=== PATIENT | female | born 1945 | race Caucasian/White ===

== ENCOUNTER 2019-12-31 22:49 | Outpatient (REF) | payer OTHER, SELFPAY ==
[2019-12-31 21:43] LABS: Hemoglobin A1C 6.1 % (3.8-5.6)
[2019-12-31 21:52] LABS: ALT 24 U/L (14-59); AST 15 U/L (15-37); Anion Gap 10.3 mmol/L (3-11); BUN 19 mg/dL (7-18); CO2 27.7 mmol/L (21.0-32.0); CREATININE 0.85 mg/dL (0.55-1.02); Calcium 8.7 mg/dL (8.5-10.1); Calculated LDL 206 mg/dL (<100); Chloride 104 mmol/L (98-107); Cholesterol 304 mg/dL (<200); Glucose 104 mg/dL (74-106); HDL Cholesterol 45 mg/dL (40-60); Magnesium 2.1 mg/dL (1.8-2.4); Potassium 4.2 mmol/L (3.5-5.1); Sodium 142 mmol/L (136-145); Triglyceride 269 mg/dL (<150)
[2020-01-03 11:47] LABS: Hepatitis C Ab w Rflx HCV PCR Negative (Negative)
== END 2019-12-31 23:09 ==
LOC: NCHCN 22:49
PROVIDERS: PCP Nurse Practitioner; Visit Provider Nurse Practitioner Family
DX: E78.5 Hyperlipidemia, unspecified (principal); M25.50 Pain in unspecified joint; R09.89 Other specified symptoms and signs involving the circulatory and respiratory systems; Z00.00 Encounter for general adult medical examination without abnormal findings; R73.01 Impaired fasting glucose; Z11.59 Encounter for screening for other viral diseases
CPT/HCPCS: 80048; 80061; 86803; 83036; 83735; 84450; 84460

== ENCOUNTER 2020-01-11 01:59 | Outpatient (CLI) | payer OTHER, SELFPAY ==
--- NOTE | 2020-01-11 | DI.US_ITS ---
EXAM: US CAROTID CLINICAL HISTORY: CAROTID BRUIT LEFT R09.89 TECHNIQUE: Ultrasound performed using standard protocol. COMPARISON: AXILLA ONLY RIGHT from 05/05/2017 FINDINGS: Duplex evaluation of the carotid circulation was performed according to the usual protocol. There is little if any visible atheromatous plaque. Flow velocities in common, internal, and external caroti d arteries are within normal limits bilaterally. There is bilateral antegrade vertebral flow. IMPRESSION: No evidence of a hemodynamically significant carotid stenosis. DATA REPOSITORY:
== END 2020-01-11 02:19 ==
PROVIDERS: PCP Nurse Practitioner Family; Visit Provider Nurse Practitioner Family
DX: R09.89 Other specified symptoms and signs involving the circulatory and respiratory systems (principal)
CPT/HCPCS: 93880

== ENCOUNTER 2020-04-12 01:12 | Outpatient (CLI) | payer OTHER, SELFPAY ==
--- NOTE | 2020-04-12 | DI.RAD_ITS ---
EXAM: XR KNEE LT 3V AP,LAT,JOSE ALBERTO INDICATION: DEGENERATIVE JOINT DISEASE, M19.90, KNEE PAIN. COMPARISON: No exams were available for comparison TECHNIQUE: 2D digital imaging was performed. FINDINGS: There is severe narrowing of the medial femoral tibial joint causing varus angulation. There is pro minent spurring from the medial femoral condyle and medial tibial plateau. Lateral femoral tibial yamini int is well maintained. There is inxx-mu-dcobqkco spurring laterally. A small joint effusion is see n. There is spurring at the patellofemoral joint. IMPRESSION: Severe degenerative changes of the medial femoral tibial joint. DATA REPOSITORY: RADIATION DOSE DELIVERED:
== END 2020-04-12 01:32 ==
PROVIDERS: PCP Nurse Practitioner Family; Visit Provider Internal Medicine
DX: M25.562 Pain in left knee (principal); M25.462 Effusion, left knee; M17.12 Unilateral primary osteoarthritis, left knee
CPT/HCPCS: 73562

== ENCOUNTER 2020-05-26 03:07 | Outpatient (CLI) | payer OTHER, SELFPAY ==
[2020-05-26 10:44] LABS: Abs Immature Grans 0.01 k/cumm (0.0-0.09); Absolute Basophil Count 0.03 k/cumm (0.0-0.2); Absolute Lymphocyte Count 1.86 k/cumm (1.2-3.4); Absolute Monocyte Count 0.51 k/cumm (0.11-0.7); Absolute Neutrophil Count 2.32 k/cumm (1.2-6.7); Basophils % 0.6; Eosinophils % 2.1; HCT 42.6 % (36.0-46.0); HGB 14.4 g/dL (12.0-15.5); Immature Grans % 0.2 %; Lymphocytes % 38.5; Mean Corp. HGB Concentration 33.8 g/dL (32.0-36.0); Mean Corpuscular Hemoglobin 30.3 pg (27.0-33.0); Mean Corpuscular Volume 89.5 fL (80-95); Mean Platelet Volume 8.8 fL (8.0-11.0); Monocytes % 10.6; Platelet Count 225 x1000/uL (130-400); RBC 4.76 m/cumm (4.00-5.20); RBC Distribution Width 13.6 % (11.7-14.6); White Blood Cell Count 4.83 k/cumm (4.4-10.8)
[2020-05-26 20:11] LABS: COVID-19 RT-PCR UVMMC Result Negative (Negative)
== END 2020-05-26 03:27 ==
PROVIDERS: PCP Nurse Practitioner Family; Visit Provider Orthopaedic Surgery
DX: M25.562 Pain in left knee (principal); M17.12 Unilateral primary osteoarthritis, left knee; Z01.818 Encounter for other preprocedural examination; Z11.59 Encounter for screening for other viral diseases
CPT/HCPCS: 36415; U0003; 85025

== ENCOUNTER 2020-05-29 06:05 | Inpatient (IN) | payer OTHER, SELFPAY ==
[2020-05-29] VITALS (13 sets, daily range): BP systolic 104–139; BP diastolic 45–82; PULSE 67–81; RESP 11–18; TEMP 36.2–36.7; O2SAT 93–100
--- NOTE | 2020-05-29 | DI.RAD_ITS ---
EXAM: XR KNEE LT 2V AP,LAT CLINICAL HISTORY: check total knee components in RR. TECHNIQUE: 2D digital imaging was performed. COMPARISON: CR XR KNEE LT 3V AP,LAT,JOSE ALBERTO from 04/12/2020 FINDINGS: The patient is now status post left total knee replacement. Orthopedic hardware appears in good posi tion. Post surgical changes are seen in the soft tissues. IMPRESSION: Status post left total knee arthroplasty. DATA REPOSITORY: RADIATION DOSE DELIVERED:
[2020-05-29] MEDS: Lactated Ringers 1,000 ML 80 ML IV (06:46)
[2020-05-29] MEDS: Bupivacaine 0.25% Pres-Free 30 ML VIAL (07:16)
[2020-05-29] MEDS: ceFAZolin 2 GM/50 ML BAG IVPB ×5 (07:29→23:15)
[2020-05-29] MEDS: Hydrogen Peroxide 3% 480 ML BTL (09:00)
[2020-05-29] MEDS: POTASSIUM CHLORIDE/0.9% NACL 1,000 ML 125 MEQ IV (11:30)
[2020-05-29] MEDS: Acetaminophen 325 MG TAB 650 MG PO (13:08)
[2020-05-29] MEDS: Docusate Sodium 100 MG CAP PO ×2 (13:08→19:24)
[2020-05-29] MEDS: Gabapentin 100 MG CAP PO ×2 (13:08→19:24)
[2020-05-29] MEDS: oxyCODONE-CR 10 MG TABCR PO (15:01)
--- NOTE | 2020-05-29 15:03 | ROE_ITS ---
Date of service: 05/29/20 Time of Service: 08:03 Operative Note Operative Note DATE OF PROCEDURE: 05/29/20 PRE-OP DIAGNOSIS: Osteoarthritis left knee with varus deformity POST-OP DIAGNOSIS: same PROCEDURE: Left total knee arthroplasty SURGEON: Juan Diego Cowart HEALTH SPA MANAGER: Divina Araujo ANESTHESIA: spinal PATHOLOGY: none sent TOURNIQUET TIME: 100 COMPLICATIONS: None Patient was transported to: PACU Patient's condition: stable Implants: Left size 3 posterior cruciate substituting femoral component. Size 3 tibial component. Size 312.5 posterior cruciate substituting polyethylene insert. 32 mm tri-prong patella. All components were cemented Indications: Is a 75-year-old white female with severe left knee pain of many years duration. She has basically put off getting a knee replacement while caring for her who has Alzheimer's disease. She however has reached the point where she can no longer tolerate the pain on a day-to-day basis. Every step she takes says she feels the crepitus in her knee. She has very great difficulty going up and down stairs because of the pain. She goes up 1 step at a time. She is awakened at night by the pain. She enjoys dancing but is been unable to dance because of the pain in her knee. Total knee replacement is recommended to alleviate her pain and hopefully restore some of her previous ambulatory abilities. Risk and complication of procedure been explained patient in detail preop. Procedure Description: Patient taken the operating room on 05/29/2020. Long- acting spinal anesthetic was administered as well as a femoral nerve block on the left side. Once good anesthesia was obtained she was placed about operative table. Proximal tourniquet was applied to the left thigh. The left lower extremity was prepped from toes to tourniquet and draped free in usual sterile fashion. Entry midline incision was made beginning at the tibial tubercle and extending 4 inches proximal to the patella. Incision was carried down to the fascia. A medial parapatellar capsular incision was made and this was extended longitudinally in the midline of the quadriceps tendon. Complete medial subperiosteal release was performed to compensate for her varus deformity. Patella was everted and the knee was hyperflexed. Patient evidenced severe tricompartmental wear from osteoarthritis of her knee. The distal femur was resected using intramedullary alignment guides and jigs and oscillating saw. Sh e was found to require a size 3 posterior cruciate substituting femoral component. The proximal tibia was resected using extra medullary arm and guides and jigs. Cuts were referenced from the more severely involved medial compartment. She was found to require a size 3 tibial component. Proper rotation alignment was determined and tibial component and then the keel for the component was reamed and punched out in proper rotation alignment. The patella was resected using patellar resection guide. Care was taken to preserve 16 mm of patella bone. Using the guide for the triplane patella holes were reamed out for the prongs with the reamer. She required a 32 mm patella component. 1 batch of gentamicin impregnated methylmethacrylate was vacuum mixed and was packed onto the posterior surfaces of the tibial component and onto the prepared proximal tibia. The tibia was prepared with pulse irrigation of of saline solution and drying with peroxide soaked strip sponges. The tibial component was inserted and was pressurized extending the knee with the trial components in place. Excess cement was trimmed from the margins of the tibial component with the plastic cement removal tool while cement was still soft. When the met methylmethacrylate had cured the trial components were removed. The distal femur and patella were prepared for cementing with pulse irrigation lavage of saline solution and drying with peroxide soaked strip sponges. A second batch of gentamicin impregnated methylmethacrylate was vacuum mixed and was packed onto the posterior surfaces of the femoral component and patella components. The methylmethacrylate is then packed onto the distal femur and prepared patella. Femoral component was impacted in place with impactor mallet and further pressurized using a trial insert and extending the knee. Patella component was inserted and pressurized using the patella clamp. Excess cement was trimmed from the margins of the femoral component patella component while the cement was still soft with a plastic cement removal tool. At this second batch of methylmethacrylate was cured the posterior recesses were checked for any residual bone or cement debris. Any found was removed. The knee was irrigated final time with pulse irrigation lavage of saline solution. Trial determined that a 12.5 thick insert was the proper size. The size 312.5 posterior cruciate substituting polyethylene insert was then placed into the tibia and reduced on the femoral condyles. Patella tracking was anatomic using the rule of no thumb. Knee was flexible esophagus and closure was begun. Wound margins in the knee capsule were infiltrated 0.5% Gildardo cane with epinephrine solution. Any obvious bleeders were cauterized. The medial parapatellar capsular incision was closed with interrupted vknmps-ae-mppyl sutures of #1 Vicryl suture. Incision the quadriceps tendon was repaired with interrupted srhbub-gs-bmzbo sutures of #1 Vicryl suture. Subcu was approximated interrupted 2-0 Vicryl sutures. A running subcuticular suture of 3-0 Monocryl was used to approximate skin edges this was supplemented by tissue glue and Steri-Strips. Mepilex dressing was applied. ABD pads wrapped with a 6 inch Chris bandages were placed over the incision tourniquet was released. Knee immobilizer splint was applied. Patient tolerated the procedure well without complication. She received 1 g of TXA prior to tourniquet inflation and a second gram of TXA when the tourniquet was deflated. Patient was discharged to the recovery room in good condition. At the conclusion of the procedure the patient had full extension of the left knee. The left knee was stable to varus valgus stressing from 0 to 90 degrees of flexion.
--- NOTE | 2020-05-29 15:11 | PT.INIE ---
Date of service: 05/29/20 Time of Service: 15:11 PT Notes Visit Reasons: POST OP L TOTAL KNEE Physical Therapy Inpatient Initial Evaluation Date: 05/29/2020 Referring Doctor: Juan Diego Cowart MD PT Orders: PT CONSULT: Status post Ortho surgery. Get OOB ambulating in room this afternoon. WBAT to L leg. Precautions: Fall. Standard. Activity as tolerated. Patient Profile/Admitting Diagnosis: Christen is a 75-year-old female with primary unilateral osteoarthritis of the left knee and is status post left total knee arthroplasty on postoperative day 0. PMHX: Medical History (Updated 05/24/20 @ 15:39 by Bryant Leary) Hyperlipidemia (Acute) Surgical History (Updated 05/24/20 @ 15:41 by Bryant Leary) H/O bilateral cataract extraction (Acute) Hx of wisdom tooth extraction (Acute) Social History/Home Situation: Christen lives in a [id number]-[id number] room with her son and her son's family. There are 4 steps to enter with rails on both sides. Christen was independent with all aspects of ADLs prior to surgery although she states that she has not driven her car for a long time due to cataracts. Equipment Owned/DME: None Subjective: Christen reports that she is able to feel her left leg and complains of 4/10 pain in the left knee at rest and with ambulation activity. She denies dizziness, chest pain, headache throughout session. Objective: General Observation: Knee immobilizer on the left LE. Cryo/Cuff on the left LE. IV in the right UE. TEDS on the right leg. Mae catheter in place. Mental Status: Oriented x4 Pain: Reports 4/10 pain in the left knee ROM: Right Upper Extremity: Shoulder Flexion WFL. Shoulder abduction WFL. Elbow flexion WFL. Wrist flexion WFL. Opening and closing of hand WFL. Left Upper Extremity: Shoulder Flexion WFL. Shoulder abduction WFL. Elbow flexion WFL. Wrist flexion WFL. Opening and closing of hand WFL. Right Lower Extremity: Hip flexion WFL. Hip abduction WFL. Knee flexion WFL. Ankle dorsiflexion WFL. Ankle plantarflexion WFL. Left Lower Extremity: Hip flexion WFL. Hip abduction WFL. Knee flexion NT. Ankle dorsiflexion WFL. Ankle plantarflexion WFL. Strength: Right Upper Extremity: Shoulder flexors 5/5. Shoulder abductors 5/5. Elbow flexors 5/5. Elbow extensors 5/5. Nurse Anesthesia Program Director strong. Left Upper Extremity: Shoulder flexors 5/5. Shoulder abductors 5/5. Elbow flexors 5/5. Elbow extensors 5/5. Nurse Anesthesia Program Director strong. Right Lower Extremity: Hip flexors 5/5. Hip abductors 5/5. Knee flexors 5/5. Knee extensors 5/5. Ankle dorsiflexors 5/5. Ankle plantarflexors 5/5. Left Lower Extremity:Hip flexors 4/5. Hip abductors 4/5. Knee flexors NT. Knee extensors NT. Ankle dorsiflexors 4/5. Ankle plantarflexors 4/5. Sensation: Intact as to pain and pressure on bilateral lower extremities. Bed Mobility/Transfers: Supine to sit standby assist with HOB at 30 degrees Sit to stand contact-guard assist with minimal verbal cueing for hand placement, requires use of front wheeled walker Stand to sit contact-guard assist with minimal verbal cueing for hand placement, requires use of front wheeled walker Bed to chair contact-guard assist with minimal verbal cueing for hand placement, requires use of front wheeled walker Chair to bed contact-guard assist with minimal verbal cueing for hand placement, requires use of front wheeled walker Gait: Tolerated in room ambulation of 30 feet using front wheeled walker with WBAT on left LE with wheelchair follow by nurse Weldon. Knee immobilizer on the left. Reported a pulling sensation in the back of the left knee. Balance: Static Sitting: Normal Dynamic Sitting: Normal Static Standing: Fair Dynamic Standing: Fair Special Tests: Mobility Limitations Standardized Measure [facility]-P[facility] 6 clicks Basic Mobility Inpatient Short Form: Raw Score: 18 CMS Score: 47% deficit Informed Consent/Education: Patient instructed in purpose of PT consult and plan of care. Assessment: Christen demonstrates functional mobility decline requiring use of front-wheeled walker for all mobility ADL performance, impairment in balance, range of motion and strength deficit, and walking due to postoperative status. Christen is a 75-year-old female with primary unilateral osteoarthritis of the left knee and is status post left total knee arthroplasty on postoperative day 0. Patient presents with clinical signs and symptoms consistent with current/admitting diagnoses that have resulted to mobility limitations, gait instability, generalized weakness, and impairment of motor control as demonstrated by the following impairment level findings: 1. Decreased strength to left LE major muscle groups 2. Impaired sitting/standing balance 3. Impaired activity tolerance 4. Limitation of joint range of motion in left knee Impairments are contributing to the following functional limitations: 1. Increased dependence with transfers 2. Inability to safely ambulate without assistive device and physical assistance 3. Increase completion time for mobility ADL performance 4. Increased fall risk 5. Inability to negotiate steps alone safely Patient is assessed as a 93667 moderate complexity based on the following: History: 75-year-old female with impairment level findings, functional limitations, and past medical history as indicated above Examination: Demonstrable impairment in strength, balance, and mobility level with underlying impairments and functional limitations as documented above Presentation:Evolving Decision Makin moderate complexity Goals: Goals X 3 days 1. Supine-Sit independent 2. Sit-Supine independent 3. Sit-Stand supervision 4. Stand-Sit supervision 5. Bed-Chair supervision 6. Chair-Bed supervision 7. Supervision gait on level surface with use of front wheeled walker for at least 300 feet without report of pain nor dyspnea 8. Supervision stair negotiation while holding onto bilateral rails for at least 5 steps without report of pain nor dyspnea 9. Independent with home exercise program 10. Good static and dynamic standing balance/tolerance Plan of Care/Treatment Plan: 1-2x/day, 7 days/week x 1 week. Plan of care has been reviewed with the PARK RECREATION MANAGER providing the service under Physical Therapy direction. Initiate Physical Therapy intervention for strengthening, bed mobility, transfers, gait, stairs, balance training, use of assistive device. PT intervention: Consisted of initial physical therapy evaluation as well as with education and training on mobility ADL performance using front wheeled walker. Patient also was educated and trained on standing level exercises consisting of weight shifting left to right x10, forward and backward shifting x10, and bilateral heel raises while holding onto front wheeled walker. Patient was also trained on room exercises that she can do on her own every 2 hours while in bed or seated on her chair consisting of gluteal setting exercises x10 held for 5 seconds each, bilateral quadriceps exercises x10 held for 5 seconds each, and bilateral ankle pumping x 20. DISCHARGE RECOMMENDATIONS: Outpatient physical therapy services according to orthopedic surgeon's timeline recommendation. Patient will benefit from the use of a front wheeled walker prior to discharge to home. TREATMENT CODE/TIME: 31605 x 30 minutes, 9753 0 x 14 minutes beginning at 15:11 PM. Thank you for the opportunity to participate in the care of this patient. Priscilla Sanchez PT, DPT, CLT [facility] [place], [place]
--- NOTE | 2020-05-29 15:21 | INITIAL_ITS ---
- If Service Date Differs Date of service: 05/29/20 Time of Service: 11:00 Care Management Initial Assess REASON FOR HOSPITALIZATION:: Post Op L Total Knee PAST MEDICAL HISTORY/PAST SURGICAL HISTORY:: Hyperlipidemia, bilateral cataract extraction, left arthroscopic knee surgery, tubal ligation, wisdom tooth extraction PREVIOUS FUNCTIONAL STATUS/SOCIAL/FAMILY SUPPORTS:: Christen resides alone in [place], [place]. She is and her daughter and son-in-law reside with her. ADVANCE DIRECTIVES:: None on file. Reports Abby Jaimes as POA. Has patient been provided with info about the portal/API?: Yes Did the patient sign up for the portal?: No CODE STATUS:: Full Code CURRENT HOME/COMMUNITY SERVICES/EQUIPMENT:: Tub seat, hand held shower, handrails PRIMARY CARE PHYSICIAN:: Natalie Davis. POTENTIAL DISCHARGE NEEDS:: PT evaluation, DME recommendations. PATIENT/FAMILY EDUCATION NEEDS:: Review of discharge instructions, discuss Ask Me Three. ANTICIPATED BARRIERS TO DISCHARGE:: None anticipated at this time. TRANSPORTATION:: Via private vehicle with family. PLAN:: Christen will be evaluated post surgically for discharge planning considerations. FWW provided by CM. PT to inform of additional services. CM continues to follow.
[2020-05-29] MEDS: Ketorolac 30 MG/ML VIAL IVP ×2 (16:36→21:52)
[2020-05-29] MEDS: Simvastatin 20 MG TAB 40 MG PO (19:24)
[2020-05-29] MEDS: Normal Saline Flush 10 ML SYR IV (21:53)
[2020-05-29] MEDS: POTASSIUM CHLORIDE/0.9% NACL 1,000 ML 60 MEQ IV (23:15)
[2020-05-30] MEDS: oxyCODONE-CR 10 MG TABCR PO ×2 (03:01→13:48)
[2020-05-30 03:08] VITALS: BP 98/65; PULSE 68; RESP 18; TEMP 36.9; O2SAT 95
[2020-05-30] MEDS: Ketorolac 30 MG/ML VIAL IVP ×2 (04:41→09:21)
[2020-05-30] MEDS: ceFAZolin 2 GM/50 ML BAG IVPB ×2 (06:04→12:02)
[2020-05-30 07:00] LABS: HCT 33.8 % (36.0-46.0); Mean Corp. HGB Concentration 32.5 g/dL (32.0-36.0); Mean Corpuscular Hemoglobin 29.9 pg (27.0-33.0); Mean Corpuscular Volume 91.8 fL (80-95); Mean Platelet Volume 9.2 fL (8.0-11.0); Platelet Count 184 x1000/uL (130-400); RBC 3.68 m/cumm (4.00-5.20); White Blood Cell Count 8.75 k/cumm (4.4-10.8)
[2020-05-30 07:30] VITALS: BP 101/65; PULSE 74; RESP 16; TEMP 36.7; O2SAT 94
[2020-05-30] MEDS: Gabapentin 100 MG CAP PO ×2 (08:12→13:49)
[2020-05-30] MEDS: Multivitamin w/Minerals TAB 1 TAB PO (08:12)
[2020-05-30] MEDS: Pantoprazole 40 MG TABCR PO (08:12)
[2020-05-30] MEDS: Calcium Carbonate 1.5 GM TAB PO (08:12)
[2020-05-30] MEDS: Docusate Sodium 100 MG CAP PO ×2 (08:12→13:49)
[2020-05-30] MEDS: Cyanocobalamin 500 MCG TAB 1000 MCG PO (08:13)
[2020-05-30] MEDS: HYDROcodone 5/Acetaminophen 325 TAB PO (09:21)
[2020-05-30] MEDS: Enoxaparin 40 MG/0.4 ML SYR SC (09:23)
[2020-05-30] MEDS: Magnesium Chloride 64 MG TABCR PO (09:23)
[2020-05-30] MEDS: POTASSIUM CHLORIDE/0.9% NACL 1,000 ML 125 MEQ IV (09:51)
[2020-05-30 11:00] VITALS: BP 95/59; PULSE 66; RESP 18; TEMP 36.7; O2SAT 98
--- NOTE | 2020-05-30 11:45 | PT.INTREAT ---
Date of service: 05/30/20 Time of Service: 11:45 PT Notes Visit Reasons: POST OP L TOTAL KNEE Inpatient Physical Therapy Treatment Note [facility] Date: 05/30/2020 PRECAUTIONS: Fall, WBAT L SUBJECTIVE: Christen reports that she is feeling good this morning, and that she already took a walk before breakfast with nursing. She expresses that she would like to be discharged to home today, and has a good support system there. OBJECTIVE: PAIN: Patient complains of L knee soreness with there ex and gait training BED MOBILITY/TRANSFERS Supine-sit: I with HOB flat Sit-supine: I with HOB flat Sit-stand: S in a.m.; I in p.m. Stand-sit: S in a.m.; I in p.m. Bed-Chair: S Chair-bed: S GAIT Assistive Device: FWW Weight bearing: WBAT L Assist: SBA Distance: 100' x2 in a.m.; 200' in p.m. Deviation: Step-through instruction in a.m.; use of step through gait pattern, standing rest x1 due to L LE pain THEREX: Patient completed a LE strengthening and stabilization program, as per flow sheet. Patient is able to perform active SLR x10 with ~5 degree lag. She ends with cryocuff to L knee. STAIRS: Up/down 3x4 and 2x6 using B rails and a step-to pattern with supervision ASSESSMENT: Patient tolerated sessions well with some c/o L knee soreness with gait training and ther ex. She was able to tolerate a progression in gait distance with FWW support and SBA, utilizing a step-through gait pattern with continuous FWW advancement, following instruction. She would benefit from continued gait training for improved activity tolerance, as well as continued ther ex for improved strength and mobility. PLAN: Continue with PT's POC TREATMENT CODE/TIME: Session 1: 35 minutes; 11482, [id number] Session 2: 25 minutes; 08751, [id number]
--- NOTE | 2020-05-30 12:47 | W.PM.DS.N ---
Date of service: 05/30/20 Time of Service: 12:47 DS: Diagnosis Discharge Diagnosis (1) Osteoarthritis of left knee: Status: Acute Discharge Plan Disposition Patient Disposition: HOME Condition: Good Discharge Details Reason For Visit: POST OP L TOTAL KNEE Admit Date/Time: 05/29/20 06:05 Admit Provider: Juan Diego Cowart Attending Provider: Juan Diego Cowart Primary Care Provider: Natalie Davis Hospital Course Hospital Course: The patient was taken to the operating room on 05/29/20 where she underwent a L total knee arthroplasty without complication. She was mobilized with physical therapy in the afternoon. On 05/30/20 she was independant with transfers and ambulation. She was eating and drinking well. She was able to do an active straight leg raise without the knee immobilizer. She voided post quintanilla removal. She was afebrile with stable vital signs. She was taking PO pain meds. I felt she had completed the acute care phase of her hospitalization and was ready for home discharge. Home Meds and New Rx's Prescriptions: New gabapentin 100 mg capsule 100 mg PO TID Qty: 30 RF: 0 celecoxib 200 mg capsule 200 mg PO BID Qty: 30 RF: 0 hydrocodone-acetaminophen 5-325 mg tablet 1 tab PO Q4H PRN (Reason: pain) Qty: 20 RF: 0 Continued acetaminophen [Acetaminophen Extra Strength] 500 mg Tablet 1,000 mg PO BID PRNRF: 0 Slow-Mag 71.5 mg Tablet,Delayed Release (Dr/Ec) 71.5 mg PO DAILY RF: 0 echinacea 400 MG capsule 400 mg PO DIRECTED RF: 0 cyanocobalamin (vitamin B-12) [Vitamin B-12] 1,000 MCG tablet 1,000 mcg PO DAILY RF: 0 acetaminophen [Arthritis Pain Relief (acetam)] 650 MG tablet extended release 650 mg PO BID RF: 0 calcium carbonate 600 MG tablet 1 tab PO DAILY RF: 0 simvastatin 20 MG tablet 40 mg PO QPM RF: 0 vitamin B complex [B-Complex] 1 EACH tablet 1 ea PO DAILY RF: 0 melatonin 10 MG tablet 10 mg PO HS RF: 0 Discharge Instructions Additional Instructions: Elevate L leg when sitting. Wear elastic stockings during daytime only, for next 2 weeks. Apply cryocuff to L knee 4 times/day for 1 hour each time. You don't have to use knee immobilizer splint at home. Outpatient physical therapy at [facility] later this week for L total knee rehab. Remove outer dressing to shower on . Leave dressing stuck to skin in place. You can shower and get this wet. Let it come off by itself, or we will remove it when you follow up. Follow up with in 2 weeks. Walk every day as much as your discomfort allows. Use walker or cane as long as you limp. Take one baby aspirin (81 mg) twice/day for 30 days to prevent bloodclots in your legs. Take celebrex as prescribed to decrease inflammation and swelling. Take hydrocodone for breakthru pain, if needed. The gabapentin is to prevent nerve pain in L leg. Referrals: Juan Diego Cowart MD [ [facility] STAFF PHYSICIAN] - (f/u in 2 weeks.) Activity:: Activity as Tolerated Equipment/Supplies:: Walker Diet:: As Tolerated Discharge Orders Discharge Orders: Discharge Order (Routine); Ordered 05/30/20 Ordered By: Juan Diego Cowart DS: Summary Status at Discharge Functional status at discharge: uses cane/walker Overall status at discharge: patient is not back to baseline Mental Status: mental status grossly normal Speech and Movement: speech and movement normal Mood: congruent mood Affect: normal affect Exam Psych Mental Status: mental status grossly normal Speech and Movement: speech and movement normal Mood: congruent mood Affect: normal affect DS: Data Vitals/I&O Vitals and I&O: Vital Signs Temperature 36.7 C 05/30/20 11:00 Temperature Source Tympanic 05/30/20 11:00 Pulse 66 05/30/20 11:00 Pulse Rhythm Regular 05/30/20 07:20 Respiratory Rate 18 05/30/20 11:00 Respiratory Effort Non-Labored 05/30/20 07:20 Respiratory Depth Normal 05/30/20 07:20 Respiratory Pattern Normal 05/30/20 07:20 Blood Pressure 95/59 L 05/30/20 11:00 Pulse Oximetry 98 05/30/20 11:00 Respiratory End-tidal CO2 31 05/29/20 11:10 Oxygen Delivery Method Room Air 05/30/20 11:00 Oxygen Flow Rate 0 05/30/20 11:00 Pain Level 6 05/30/20 11:22 Intake & Output 05/29/20 05/30/2005/30/20 23:59 11:59 23:59 Intake Total 1368 / 2398 1490 / 1490 Output Total 1050 / 1450 1150 / 1150 Balance 318 / 948 340 / 340 Intake: IV 1128 / 2158 1050 / 1050 Oral 240 / 240 440 / 440 Output: Urine 1050 / 1450 1150 / 1150 Other: Urine Color Yellow Yellow Urine Appearance Clear Clear Data Completed and Pending Labs on day of discharge: Labs from last 24 hours 05/30/20 05:55 WBC 8.75 RBC 3.68 L Hgb 11.0 L Hct 33.8 L MCV 91.8 MCH 29.9 MCHC 32.5 RDW 14.0 Plt Count 184 MPV 9.2 PFSH Medical History Hyperlipidemia (Acute) Surgical History (Updated 05/29/20 @ 06:29 by Brittney Messina RN) H/O bilateral cataract extraction (Acute) Hx of arthroscopic knee surgery (Chronic) Left Hx of tubal ligation (Chronic) Hx of wisdom tooth extraction (Acute) Family History (Updated 05/25/20 @ 12:15 by Ricci Skinner) Father Heart disease Mother Cancer Diabetes Social History Smoking/Tobacco Use Status: Never Drug use: Never
--- NOTE | 2020-05-31 17:00 | INDS_ITS ---
Date of service: 05/31/20 PT Notes Visit Reasons: POST OP L TOTAL KNEE Physical Therapy Inpatient Discharge Summary Date: 05/31/2020 Dates of Service: 05/29/2020 through 05/30/2020 This is a clinical summary of care provided on the duration of dates listed above. No charge was made in the completion of this documentation. Referring Doctor: Juan Diego Cowart MD PT Orders: PT CONSULT: Status post Ortho surgery. Get OOB ambulating in room this afternoon. WBAT to L leg. Precautions: Fall. Standard. Activity as tolerated. Patient Profile/Admitting Diagnosis: Christen is a 75-year-old female with primary unilateral osteoarthritis of the left knee and is status post left total knee arthroplasty on postoperative day 2. PMHX: Medical History (Updated 05/24/20 @ 15:39 by Bryant Leary) Hyperlipidemia (Acute) Surgical History (Updated 05/24/20 @ 15:41 by Bryant Leary) H/O bilateral cataract extraction (Acute) Hx of wisdom tooth extraction (Acute) Social History/Home Situation: Christen lives in a [id number] room with her son and her son's family. There are 4 steps to enter with rails on both sides. Christen was independent with all aspects of ADLs prior to surgery although she states that she has not driven her car for a long time due to cataracts. Equipment Owned/DME: None Subjective: NT Objective: General Observation: NT Mental Status: NT Pain: NT ROM: Right Upper Extremity: Shoulder Flexion WFL. Shoulder abduction WFL. Elbow flexion WFL. Wrist flexion WFL. Opening and closing of hand WFL. Left Upper Extremity: Shoulder Flexion WFL. Shoulder abduction WFL. Elbow flexion WFL. Wrist flexion WFL. Opening and closing of hand WFL. Right Lower Extremity: Hip flexion WFL. Hip abduction WFL. Knee flexion WFL. Ankle dorsiflexion WFL. Ankle plantarflexion WFL. Left Lower Extremity: Hip flexion WFL. Hip abduction WFL. Knee flexion NT. Ankle dorsiflexion WFL. Ankle plantarflexion WFL. Strength: Right Upper Extremity: Shoulder flexors 5/5. Shoulder abductors 5/5. Elbow flexors 5/5. Elbow extensors 5/5. Educational Program Director strong. Left Upper Extremity: Shoulder flexors 5/5. Shoulder abductors 5/5. Elbow flexors 5/5. Elbow extensors 5/5. Educational Program Director strong. Right Lower Extremity: Hip flexors 5/5. Hip abductors 5/5. Knee flexors 5/5. Knee extensors 5/5. Ankle dorsiflexors 5/5. Ankle plantarflexors 5/5. Left Lower Extremity:Hip flexors 4/5. Hip abductors 4/5. Knee flexors NT. Knee extensors NT. Ankle dorsiflexors 4/5. Ankle plantarflexors 4/5. Sensation: Intact as to pain and pressure on bilateral lower extremities. Bed Mobility/Transfers: Supine to sit I Sit to stand I with FWW Stand to sit I with FWW Bed to chair I with FWW Chair to bed I with FWW Gait: Tolerated in room ambulation of 200 feet using front wheeled walker with WBAT on left LE with wheelchair follow by nurse Fatemeh. Knee immobilizer on the left. Step through gait pattern. Standing rest needed due to knee pain complaint. Balance: Static Sitting: Normal Dynamic Sitting: Normal Static Standing: Fair Dynamic Standing: Fair Assessment: Christen demonstrates functional mobility decline requiring use of front-wheeled walker for all mobility ADL performance, impairment in balance, range of motion and strength deficit, and walking due to postoperative status. Christen is a 75-year-old female with primary unilateral osteoarthritis of the left knee and is status post left total knee arthroplasty on postoperative day 2. Patient continue to present with clinical signs and symptoms consistent with current/admitting diagnoses that have resulted to mobility limitations, gait instability, generalized weakness, and impairment of motor control as demonstrated by the following impairment level findings: 1. Decreased strength to left LE major muscle groups 2. Impaired standing balance 3. Impaired activity tolerance 4. Limitation of joint range of motion in left knee Impairments are contributing to the following functional limitations: 1. Inability to safely ambulate without assistive device and physical assistance 2. Increase completion time for mobility ADL performance 3. Increased fall risk 4. Inability to negotiate steps alone safely Goals: Goals X 3 days 1. Supine-Sit independent MET 2. Sit-Supine independent MET 3. Sit-Stand supervision MET 4. Stand-Sit supervision MET 5. Bed-Chair supervision MET 6. Chair-Bed supervision MET 7. Supervision gait on level surface with use of front wheeled walker for at least 300 feet without report of pain nor dyspnea NOT MET 8. Supervision stair negotiation while holding onto bilateral rails for at least 5 steps without report of pain nor dyspnea NOT MET 9. Independent with home exercise program MET 10. Good static and dynamic standing balance/tolerance NOT MET DISCHARGE RECOMMENDATIONS: Outpatient physical therapy services according to orthopedic surgeon's timeline recommendation. Patient will benefit from the use of a front wheeled walker prior to discharge to home. TREATMENT CODE/TIME: OH Thank you for the opportunity to participate in the care of this patient. Priscilla Sanchez PT, DPT, CLT [facility] [place], [place]
== END 2020-05-30 14:52 | disposition home or self-care (01) | DRG 470 ==
LOC: PDS 06:05 → MS 10:58
PROVIDERS: Admitting Provider Orthopaedic Surgery; PCP Nurse Practitioner Family; Visit Provider Orthopaedic Surgery
PROC: 0SRD0J9 Replacement of Left Knee Joint with Synthetic Substitute, Cemented, Open Approach (ICD-10-PCS; CPT 27447; principal; 2020-05-29 07:30)
DX: M17.12 Unilateral primary osteoarthritis, left knee (principal); M25.562 Pain in left knee; M21.162 Varus deformity, not elsewhere classified, left knee; Z96.652 Presence of left artificial knee joint; G89.18 Other acute postprocedural pain; E78.00 Pure hypercholesterolemia, unspecified; F41.9 Anxiety disorder, unspecified
CPT/HCPCS: 27447; 36415; 76942; 85027; 97110; 97162; 97530; J1650; NC; 73560; J0690; J1100; J1885; J2405; L1830

== ENCOUNTER 2021-01-31 11:45 | Outpatient (REF) | payer OTHER, SELFPAY ==
[2021-01-31 14:20] LABS: ALT 26 U/L (14-59); AST 15 U/L (15-37); Calculated LDL 127 mg/dL (<100); Cholesterol 231 mg/dL (<200); HDL Cholesterol 47 mg/dL (40-60); Triglyceride 286 mg/dL (<150)
== END 2021-01-31 11:46 | disposition home or self-care (01) ==
LOC: NCHCN 11:45
PROVIDERS: PCP Nurse Practitioner Family; Visit Provider Nurse Practitioner Family
DX: E78.00 Pure hypercholesterolemia, unspecified (principal)
CPT/HCPCS: 80061; 84450; 84460; 86003

== ENCOUNTER 2021-04-26 01:25 | Outpatient (CLI) | payer OTHER, SELFPAY ==
--- NOTE | 2021-04-26 | DI.DEXA_ITS ---
Exam(s) XR DEXA BONE DENSITY W/WO JESSICA EXAM: XR DEXA BONE DENSITY W/WO JESSICA CLINICAL HISTORY: OSTEOPENIA,M85.80 TECHNIQUE: [employer] C densitometer COMPARISON: DX DEXA BONE DENSITY WITH JESSICA from 12/28/2013 DX DEXA BONE DENSITY WITH JESSICA from 12/28/2013 FINDINGS: Lateral view of the thoracic and lumbar spine shows no evidence of compression fractures. Bone mineral density measurements of the lumbar spine correspond to a total T-score of negative 1.4, in the osteopenic range. This is not significantly changed from the previous exam. There are degen erative changes at L1 and L2 with visibly increased sclerosis,. The L3 vertebral body shows a T-scor e of -3.2 and the L4 vertebral body shows a T-score of -3.0, in the osteoporotic range. Bone mineral density measurements of the left hip correspond to a total T-score of -1.6. The femora l neck T-score is -1.9, in the osteopenic range. This represents a 15.3 percent decrease when compar ed with 2013. . The left forearm bone mineral density measurements correspond to a T-score of the distal 3rd of -4.1 , in the osteoporotic range. This has significantly decreased from the previous exam by 10.4 percent . IMPRESSION: Stable overall osteopenia of the lumbar spine. Osteopenia of the left hip with significant decrease compared to 2013. Osteoporosis of left forearm, also with significant decrease in bone density.
--- NOTE | 2021-04-26 | DI.MAMMO_ITS ---
Exam(s) MAMMO SCREENING EXAM: MAMMO SCREENING CLINICAL HISTORY: SCREENING, Z12.31 TECHNIQUE: Mammograms were interpreted according to the usual protocol including computer analysis w [employer] CAD system, tomosynthesis and C-view imaging. COMPARISON: 2013 through 2017 FINDINGS: The breasts are composed of heterogeneously dense fibroglandular densities, Breast Density category C . No suspicious masses or suspicious microcalcifications are seen. No skin thickening or abnormal axillary lymph nodes are seen. There has been no significant change from prior exams. IMPRESSION: BI-RADS Category 1, Negative mammogram. Yearly screening mammography is recommended. Breast Density Category C, heterogeneously Dense. The mammogram demonstrates the patient's breast tissue is dense. Dense breast tissue is very common a nd is not abnormal but dense breast tissue can make it harder to find cancer on a mammogram. Also, de nse breast tissue may increase breast cancer risk. This information about the result of the mammogram report was provided to the patient to raise their awareness. Use this report when you speak with the patient about their risks for breast cancer, which includes their family history. At that time, you may recommend additional screening tests (Ultrasound or MRI) as they might be useful based on their r isk. A negative radiographic report should not delay biopsy if a dominant or clinically suspicious mass is present. Up to ten percent of cancers are not identified on mammography. A negative report may reinforce clinical impression. Adenosis and dense breasts may obscure an underlying neoplasm. False positive reports average 6 to 10%.
== END 2021-04-26 01:45 ==
PROVIDERS: PCP Nurse Practitioner Family; Visit Provider Nurse Practitioner Family
DX: Z12.31 Encounter for screening mammogram for malignant neoplasm of breast (principal); M81.0 Age-related osteoporosis without current pathological fracture; M85.88 Other specified disorders of bone density and structure, other site
CPT/HCPCS: 77063; 77067; 77080

== ENCOUNTER 2021-05-03 10:16 | Outpatient (REF) | payer OTHER, SELFPAY ==
[2021-05-03 14:20] LABS: Hemoglobin A1C 6.4 % (<5.7)
== END 2021-05-03 10:17 | disposition home or self-care (01) ==
LOC: NCHCN 10:16
PROVIDERS: PCP Nurse Practitioner Family; Visit Provider Nurse Practitioner Family
DX: R73.03 Prediabetes (principal)
CPT/HCPCS: 83036

== ENCOUNTER 2021-05-31 10:26 | Outpatient (CLI) | payer OTHER, SELFPAY ==
--- NOTE | 2021-05-31 10:00 | DI.RAD_ITS ---
Exam(s) XR KNEE LT 2V AP,LAT EXAM: XR KNEE LT 2V AP,LAT CLINICAL HISTORY: annual f/u L TKA. TECHNIQUE: 2D digital imaging was performed. COMPARISON: CR XR KNEE LT 2V AP,LAT from 05/29/2020 FINDINGS: There is stable position alignment of the components of the left knee prosthesis without significant change compared to postoperative images of May 2020. No evidence of fracture or loosening. No radi ographic evidence of osteomyelitis. IMPRESSION: DATA REPOSITORY: RADIATION DOSE DELIVERED:
== END 2021-05-31 10:27 | disposition home or self-care (01) ==
LOC: DIORS 10:26
PROVIDERS: PCP Nurse Practitioner Family; Referring Provider Nurse Practitioner Family; Visit Provider Student in an Organized Health Care Education/Training Program
DX: Z96.652 Presence of left artificial knee joint (principal)
CPT/HCPCS: 73560

== ENCOUNTER 2022-02-13 15:24 | Outpatient (REF) | payer OTHER, SELFPAY ==
[2022-02-13 16:17] LABS: HCT 46.6 % (36.0-46.0); HGB 15.2 g/dL (11.2-15.7); MCH 28.8 pg (27.0-33.0); MCHC 32.6 % (32.0-36.0); MCV 88.3 fL (80-95); MPV 9.7 fL (8.0-11.0); Platelet Count 225 10^3/uL (130-400); RBC 5.28 10^6/uL (3.93-5.22); RDW 13.7 % (11.7-14.6); RDW-SD 44.6 fL; WBC 5.82 10^3/uL (4.4-10.8)
[2022-02-13 16:56] LABS: ALT 29 U/L (14-59); AST 17 U/L (15-37); Albumin 4.4 g/dL (3.4-5.0); Alkaline Phosphatase 84 U/L (46-116); Anion Gap 11.2 mmol/L (3-11); BUN 14 mg/dL (7-18); Bilirubin, Total 0.5 mg/dL (0.2-1.0); CO2 25.8 mmol/L (21.0-32.0); Chloride 105 mmol/L (98-107); Estimated GFR 54.05 (mL/min/1.73m2); Glucose 113 mg/dL (74-106); Potassium 4.1 mmol/L (3.5-5.1); Sodium 142 mmol/L (136-145); Total Protein 7.7 g/dL (6.4-8.2)
[2022-02-14 14:05] LABS: Vitamin D 25 Total 25.6 ng/mL (30-100)
[2022-02-14 14:26] LABS: Calculated LDL 87 mg/dL (<100); Cholesterol 186 mg/dL (<200); HDL Cholesterol 56 mg/dL (40-60); Triglyceride 216 mg/dL (<150)
== END 2022-02-13 15:25 | disposition home or self-care (01) ==
LOC: NCHCN 15:24
PROVIDERS: PCP Nurse Practitioner Family; Visit Provider Nurse Practitioner Family
DX: R53.83 Other fatigue (principal); E78.5 Hyperlipidemia, unspecified; R73.03 Prediabetes; M85.88 Other specified disorders of bone density and structure, other site; Z51.81 Encounter for therapeutic drug level monitoring
CPT/HCPCS: 80053; 80061; 82306; 85027

== ENCOUNTER 2023-03-20 17:19 | Outpatient (REF) | payer OTHER, SELFPAY ==
[2023-03-20 15:32] LABS: Abs Immature Grans 0.01 10^3/uL (0.0-0.06); Absolute Basophil Count 0.04 10^3/uL (0.0-0.2); Absolute Lymphocyte Count 1.51 10^3/uL (1.2-3.4); Absolute Monocyte Count 0.41 10^3/uL (0.1-0.8); Absolute Neutrophil Count 2.87 10^3/uL (1.2-6.7); Basophils % 0.8; HCT 45.5 % (36.0-46.0); HGB 15.5 g/dL (11.2-15.7); Immature Grans % 0.2; Lymphocytes % 30.6; MCH 30.9 pg (27.0-33.0); MCHC 34.1 % (32.0-36.0); MCV 91 fL (80-95); MPV 9.2 fL (8.0-11.0); Monocytes % 8.3; Neutrophils % 58.1; Platelet Count 210 10^3/uL (130-400); RBC 5.02 10^6/uL (3.93-5.22); RDW-SD 47.3 fL; WBC 4.94 10^3/uL (4.4-10.8)
[2023-03-20 16:06] LABS: ALT 26 U/L (14-59); AST 18 U/L (15-37); Alkaline Phosphatase 82 U/L (46-116); BUN 16 mg/dL (7-18); Bilirubin, Total 0.5 mg/dL (0.2-1.0); CREATININE 0.9 mg/dL (0.55-1.02); Calcium 9.2 mg/dL (8.5-10.1); Calculated LDL 170 mg/dL (<100); Chloride 107 mmol/L (98-107); Cholesterol 264 mg/dL (<200); Estimated GFR 65.84 (mL/min/1.73m2); Glucose 123 mg/dL (74-106); HDL Cholesterol 66 mg/dL (40-60); Hemoglobin A1C 6.2 % (<5.7); Potassium 3.9 mmol/L (3.5-5.1); Sodium 143 mmol/L (136-145); Total Protein 7.5 g/dL (6.4-8.2); Triglyceride 142 mg/dL (<150)
[2023-03-20 16:28] LABS: Vitamin D 25 Total 35.3 ng/mL (30-100)
== END 2023-03-20 17:20 | disposition home or self-care (01) ==
LOC: NCHCN 17:19
PROVIDERS: PCP Nurse Practitioner Family; Visit Provider Nurse Practitioner Family
DX: Z00.00 Encounter for general adult medical examination without abnormal findings (principal); E78.5 Hyperlipidemia, unspecified; R73.03 Prediabetes; M85.88 Other specified disorders of bone density and structure, other site
CPT/HCPCS: 80053; 80061; 82306; 83036; 85025

== ENCOUNTER → 2023-08-14 02:26 | Outpatient (CLI) | payer OTHER, SELFPAY ==
--- NOTE | 2023-08-14 | DI.DEXA_ITS ---
Exam(s) XR DEXA BONE DENSITY W/WO JESSICA EXAM: XR DEXA BONE DENSITY W/WO JESSICA CLINICAL HISTORY: MENOPAUSE, Z78.0 TECHNIQUE: Routine DEXA evaluation of the lumbar spine, hip, or forearm. COMPARISON: CR XR DEXA BONE DENSITY W/WO JESSICA from 04/26/2021 FINDINGS: Performed on a [employer] unit. Lateral image: No compression fracture evident. Lumbar Spine total T-score: -1.3. Prior reading in April 2021 was -1.4 Hip total T-score:-1.7. Prior reading in 2020 was -1.6 Independent reading at the level of the femoral neck yields T-score of -2.2 Forearm total T-score: -3.9. Prior reading in 2020 was also in osteoporosis range score of -4.1 IMPRESSION: Bone mineral density measures in the osteopenia range for the lumbar spine and hip and in the osteopo rosis range for the wrist-forearm. Fracture risk is moderate-high. Note: Any spine fracture indicates 5x risk for subsequent spine fracture and 2x risk for subsequent h ip fracture. World Health Organization criteria for BMD interpretation classify patients: Normal...... T- Score at or above -1.0 Osteopenic... T- Score between -1.0 and -2.5 Osteoporosis... T-Score at or below -2.5
== END ==
PROVIDERS: PCP Nurse Practitioner Family; Visit Provider Nurse Practitioner Family
DX: Z13.820 Encounter for screening for osteoporosis (principal); Z78.0 Asymptomatic menopausal state; M81.0 Age-related osteoporosis without current pathological fracture
CPT/HCPCS: 77080

== ENCOUNTER 2024-07-27 11:28 | Outpatient (REF) | payer OTHER, SELFPAY ==
[2024-07-27 16:42] LABS: HCT 47.3 % (36.0-46.0); HGB 15.3 g/dL (11.2-15.7); MCHC 32.3 % (32.0-36.0); MCV 93 fL (80-95); MPV 9.5 fL (8.0-11.0); Platelet Count 204 10^3/uL (130-400); RDW 13.7 % (11.7-14.6); RDW-SD 46.9 fL; WBC 5.17 10^3/uL (4.4-10.8)
[2024-07-27 17:15] LABS: ALT 26 U/L (14-59); AST 18 U/L (15-37); Albumin 4.1 g/dL (3.4-5.0); Alkaline Phosphatase 59 U/L (46-116); Anion Gap 7.5 mmol/L (3-11); BUN 16 mg/dL (7-18); Bilirubin, Total 0.51 mg/dL (0.2-1.0); CO2 29.5 mmol/L (21.0-32.0); CREATININE 0.9 mg/dL (0.55-1.02); Calcium 9.5 mg/dL (8.5-10.1); Calculated LDL 74 mg/dL (<100); Chloride 105 mmol/L (98-107); Cholesterol 173 mg/dL (<200); Estimated GFR 65.44 (mL/min/1.73m2); Glucose 107 mg/dL (74-106); HDL Cholesterol 69 mg/dL (40-60); Potassium 4.7 mmol/L (3.5-5.1); Sodium 142 mmol/L (136-145); Total Protein 7.4 g/dL (6.4-8.2); Triglyceride 153 mg/dL (<150); Vitamin D 25 Total 33.5 ng/mL (30-100)
== END 2024-07-27 11:29 | disposition home or self-care (01) ==
LOC: NCHCN 11:28
PROVIDERS: PCP Nurse Practitioner Family; Visit Provider Nurse Practitioner Family
DX: E78.5 Hyperlipidemia, unspecified (principal); M81.0 Age-related osteoporosis without current pathological fracture; R23.3 Spontaneous ecchymoses
CPT/HCPCS: 80053; 80061; 82306; 85027

== ENCOUNTER 2024-07-30 00:29 | Outpatient (CLI) | payer OTHER, SELFPAY ==
--- NOTE | 2024-07-30 | DI.MAMMO_ITS ---
Exam(s) MAMMO SCREENING EXAM: MAMMO SCREENING CLINICAL HISTORY: SCREENING,Z12.31 TECHNIQUE: Mammograms were interpreted according to the usual protocol including computer analysis w [employer] CAD system, tomosynthesis and C-view imaging. COMPARISON: 2016 through 2020 FINDINGS: The breasts are composed of heterogeneously dense fibroglandular densities, Breast Density category C . No suspicious masses or suspicious microcalcifications are seen. No skin thickening or abnormal axillary lymph nodes are seen. There has been no significant change from prior exams. IMPRESSION: BI-RADS Category 1, Negative mammogram. Yearly screening mammography is recommended. Breast Density Category C, heterogeneously Dense. The mammogram demonstrates the patient's breast tissue is dense. Dense breast tissue is very common a nd is not abnormal but dense breast tissue can make it harder to find cancer on a mammogram. Also, de nse breast tissue may increase breast cancer risk. This information about the result of the mammogram report was provided to the patient to raise their awareness. Use this report when you speak with the patient about their risks for breast cancer, which includes their family history. At that time, you may recommend additional screening tests (Ultrasound or MRI) as they might be useful based on their r isk. A negative radiographic report should not delay biopsy if a dominant or clinically suspicious mass is present. Up to ten percent of cancers are not identified on mammography. A negative report may reinforce clinical impression. Adenosis and dense breasts may obscure an underlying neoplasm. False positive reports average 6 to 10%.
--- NOTE | 2024-07-30 15:47 | DI.RAD_ITS ---
Exam(s) XR TIB/FIB RT EXAM: XR TIB/FIB RT CLINICAL HISTORY: PAIN RT LOWER LIMB,M79.604. TECHNIQUE: 2D digital imaging was performed. Two views. COMPARISON: No exams were available for comparison FINDINGS: BONES: No acute fracture is present. No bony destructive lesion is seen. Prominent heel spurs. Joints: Degenerative changes at the knee. The ankle is unremarkable. SOFT TISSUE: Normal. IMPRESSION: Degenerative changes of the knee. Heel spurs. DATA REPOSITORY: RADIATION DOSE DELIVERED:
== END 2024-07-30 00:49 ==
LOC: DI 00:29
PROVIDERS: PCP Nurse Practitioner Family; Visit Provider Nurse Practitioner Family
DX: Z12.31 Encounter for screening mammogram for malignant neoplasm of breast (principal); M17.11 Unilateral primary osteoarthritis, right knee
CPT/HCPCS: 77063; 77067; 73590

== ENCOUNTER 2024-12-06 13:54 | Outpatient (CLI) | payer OTHER, SELFPAY ==
--- NOTE | 2024-12-06 09:15 | DI.RAD_ITS ---
Exam(s) XR ANKLE RT COMPLETE EXAM: XR ANKLE RT COMPLETE CLINICAL HISTORY: RIGHT ANKLE PAIN. TECHNIQUE: 2D digital imaging was performed. Three views. COMPARISON: No exams were available for comparison FINDINGS: BONES: No acute fracture is present. No bony destructive lesion is seen. Prominent heel spurs. JOINTS: The ankle mortise is normally aligned. Mild narrowing of the tibiotalar joint. Minimal per iarticular spurring. SOFT TISSUE: Normal. IMPRESSION: Prominent heel spurs. DATA REPOSITORY: RADIATION DOSE DELIVERED:
== END 2024-12-06 13:55 | disposition home or self-care (01) ==
LOC: DIORS 13:55
PROVIDERS: PCP Nurse Practitioner Family; Referring Provider Nurse Practitioner Family; Visit Provider Student in an Organized Health Care Education/Training Program
DX: M25.571 Pain in right ankle and joints of right foot (principal)
CPT/HCPCS: 73610

== ENCOUNTER 2024-12-30 02:26 | Outpatient (CLI) | payer OTHER, SELFPAY ==
--- NOTE | 2024-12-30 08:00 | DI.MRI_ITS ---
Exam(s) MR LOWER JOINT RT WO EXAM: MR LOWER JOINT RT WO CLINICAL HISTORY: PAIN,? R PERONEAL TENDON TEAR,S86.319A TECHNIQUE: Multiplanar multisequence MRI was performed without intravenous contrast. COMPARISON: CR XR ANKLE RT COMPLETE from 12/06/2024 FINDINGS: BONES/JOINTS: No fracture or contusion pattern. No bone lesions identified. The talar dome is smooth. The ankle mortise is maintained. No joint effusion is present. Heel spurs but no abnormal so seate d signal. LIGAMENTS: The tibiofibular and calcaneofibular ligaments are intact. The talofibular ligaments are i ntact. The deltoid ligament is intact. The syndesmosis is unremarkable. Sinus tarsi is normal. MUSCULOTENDINOUS STRUCTURES: Achilles tendon: Unremarkable. Plantar fascia: Unremarkable. Anterior Extensor tendons: Unremarkable. Posterior Tibialis: Unremarkable. Flexor Digitorum longus: Unremarkable. Flexor Hallucis longus: Fluid seen tracking along the medial aspect of the tendon. This could be wit hin the tendon sheath or could represent an adjacent ganglion. The tendon appears intact. Peroneus longus: Unremarkable. Peroneus brevis:Unremarkable. SOFT TISSUES: Edema is seen in the dorsal lateral aspect of the ankle IMPRESSION: No evidence of peroneal tendon tear. There is anterolateral soft tissue edema. Fluid around the flexor hallucis longus tendon could represent adjacent ganglion versus fluid in the tendon sheath. Tendon itself appears normal. DATA REPOSITORY:
== END 2024-12-30 02:46 ==
LOC: DI 02:26
PROVIDERS: PCP Nurse Practitioner Family; Visit Provider Student in an Organized Health Care Education/Training Program
DX: S86.311A Strain of muscle(s) and tendon(s) of peroneal muscle group at lower leg level, right leg, initial encounter (principal); X58.XXXA Exposure to other specified factors, initial encounter
CPT/HCPCS: 73721